=== PATIENT | male | born 1985 | race Caucasian/White ===

== ENCOUNTER 2025-02-17 10:11 | Outpatient (CLI) | payer OTHER, SELFPAY ==
[2025-02-17 14:42] LABS: Hematocrit 49.3 % (42.0-52.0); Hemoglobin 16.2 g/dL (14.1-18.0); Immature Granulocytes % 0.4 %; Mean Corpuscular HGB Conc 32.9 g/dL (31.8-35.4); Mean Corpuscular Hemoglobin 28.0 pg (27.0-31.2); Mean Corpuscular Volume 85.3 fl (80-94); Nucleated Red Blood Cells % 0 %; Platelet Count 225 K/mm3 (142-424); Red Blood Count 5.78 M/mm3 (4.60-6.20); Red Cell Distribution Width-SD 40.6 fL; White Blood Count 5.6 K/mm3 (4.8-10.8)
[2025-02-17 15:17] LABS: Alanine Aminotransferase 38 U/L (12-78); Albumin Level 4.8 g/dl (3.5-5.0); Albumin/Globulin Ratio 1.8 (1.1-1.8); Alkaline Phosphatase 78 U/L (38-126); Anion Gap 19.8 mEq/L (5-15); Aspartate Amino Transferase 31 U/L (17-59); Bilirubin,Total 1.0 mg/dl (0.2-1.3); Blood Urea Nitrogen 19 mg/dl (9-20); Calcium 9.5 mg/dl (8.4-10.2); Carbon Dioxide 24 mmol/L (22.0-30.0); Chloride 98 mmol/L (98-107); Cholesterol 200 mg/dl (140-200); Creatinine,Serum 0.80 mg/dl (0.66-1.25); Estimated Glomerular Filt Rate 108 ml/min (>60); GFR (African American) 130 ML/MIN (>60); Globulin 2.6 g/dL (1.3-3.2); Glucose 88 mg/dl (74-100); HDL Cholesterol 30 mg/dl (40-60); Potassium 3.8 mmoL/L (3.5-5.1); Sodium 138 mmol/L (136-145); Total Protein,Serum 7.4 g/dl (6.3-8.2); Triglycerides 155 mg/dl (30-150)
[2025-02-17 16:03] LABS: Hepatitis C Ab Qual. W/ RFX NEGATIVE (Negative)
[2025-02-17 16:05] LABS: Vitamin B12 294 pg/mL (239-931)
[2025-02-17 21:15] LABS: Hemoglobin A1C 6.6 % (4.0-6.0)
[2025-02-18 08:36] LABS: Hepatitis B Surface Antigen Negative (Negative)
== END 2025-02-17 23:59 | disposition home or self-care (01) ==
LOC: LAB.DROPOF 02-18 10:06
PROVIDERS: PCP Family Medicine; Visit Provider Family Medicine
DX: N34.1 Nonspecific urethritis (principal); Z11.59 Encounter for screening for other viral diseases
CPT/HCPCS: 80053; 80061; 80074; 82607; 83036; 85025; 87340; 87389